=== PATIENT | female | born 1960 | race Caucasian/White ===

== ENCOUNTER 2016-12-29 18:20 | Emergency (ER) | payer MEDICAID ==
--- NOTE | 2016-12-29 18:42 | EDPHY ---
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 She also felt transiently weak and noted shaking in her bilateral upper extremities which resolved after few seconds. She denies: Headache, visual disturbance, facial symptoms, chest pain, back pain, nausea, vomiting, urinary complaints, recent injury, recent trauma, recent illness, cervical manipulation. PRIMARY CARE PROVIDER: [facility] REVIEW OF SYSTEMS: A ten point review of systems was performed and is negative with the exception of the items mentioned in the HPI PAST MEDICAL & SURGICAL HISTORY: Chronic bilateral upper and lower extremity radiculopathy. Ovarian cyst. SOCIAL HISTORY: nonsmoker PHYSICAL EXAM (Prior to examination, patient consented to physical exam, hands were washed and my usual and customary physical exam procedures followed) 1) GENERAL: Well-developed, well-nourished, alert and oriented. Appears anxious . 2) HEAD: Normocephalic, atraumatic 3) HEENT: Pupils equal, round, reactive to light bilaterally. Sclera anicteric. Nasopharynx, oropharynx, clear, no lesions. Ears bilaterally with normal tympanic membranes. 4) NECK: Full range of motion, no meningeal signs. 5) LUNGS: Clear auscultation bilaterally, no wheezes, no rhonchi, no retractions. 6) HEART: Regular rate and rhythm, no murmur, no heave, no gallop. 7) ABDOMEN: No guarding, tender to palpation epigastrium, no pulsatile or palpable mass, negative McBurney's, negative Diaz's, negative Rovsing's, negative peritoneal sign, 8) MUSCULOSKELETAL: Moving all extremities, no focal areas of tenderness, no obvious trauma. No peripheral edema or discoloration. 9) BACK: No CVA tenderness, no midline vertebral tenderness, no fluctuance, no step-off, no obvious trauma, no visual or palpable abnormality. 10) SKIN: No rash, no petechiae. 11) Psychiatric: Patient is oriented X 3, there is no agitation. 12) NEURO: Awake, alert, and oriented to person, place and time. Answers questions appropriately. There were no obvious focal neurologic abnormalities. No cerebellar dysfunction. Normal steady gait. Upper and lower extremities bilaterally with strength 5 / 5, reflexes 2+. While speaking with the patient she developed a transient episode lasting approximately 20 seconds where she was fully awake, talking, conscious but was shaking her hand. At this time she had no slurred speech, no incontinence. DIFFERENTIAL DIAGNOSIS: In no particular order, including but not limited to biliary colic, cholecystitis, peptic ulcer disease, pancreatitis, and gastroenteritis. This is a partial list of diagnoses considered. These considerations are based on history, physical exam, past history and reassessment. - Personal History Current Tetanus/Diphtheria Vaccine: Yes Current Tetanus Diphtheria and Acellular Pertussis (TDAP): Yes - Medical/Surgical History Hx Asthma: No Hx Chronic Respiratory Disease: No Hx Diabetes: No Hx Cardiac Disease: No Hx Renal Disease: No Hx Cirrhosis: No Hx Alcoholism: No Hx HIV/AIDS: No Hx Splenectomy or Spleen Trauma: No Other PMH: Neuropathy - Social History Smoking Status: Never smoked Constitutional: Initial Vital Signs Temperature (C) 36.6 C 12/29/16 18:26 Heart Rate 88 12/29/16 18:26 Respiratory Rate 16 12/29/16 18:26 Blood Pressure 138/80 H 12/29/16 18:26 O2 Sat (%) 97 12/29/16 18:26 O2 Delivery Mode Room Air Allergies/Adverse Reactions: No Known Allergies Allergy (Unverified 12/29/16 18:26) Home Medications: Medication Instructions Recorded Docusate Sodium [Colace] 100 mg PO BID #6 cap 12/29/16 Medical Decision Making - Diagnostics Imaging: Ultrasound Abdomen, Limited History: Right upper quadrant pain. Findings: The liver is homogeneous measuring 12 cm. No evidence for focal liver lesion. No evidence for intrahepatic or extrahepatic biliary ductal dilatation. The common bile duct measures 3 mm. Gallbladder is normal in appearance. Abdominal aorta is normal in diameter with no evidence for dissection or significant atherosclerotic disease. Pancreas is normal in appearance. Right kidney measures 10.8 cm in length and demonstrates no evidence for mass or hydronephrosis. No significant free fluid. Impression: Normal right upper quadrant ultrasound. Results called to Arias Lea PA-C. Dictated By: Rohit Nagy MD images reviewed by myself CT Head (Without Contrast) Indication: Altered mental status. Extremity weakness.. Technique: 5 mm images were obtained of the head without contrast. Multiplanar reformation was performed. Dose reduction techniques were utilized. Findings: No evidence for intracranial mass, hemorrhage, or infarct. The ventricles, sulci, and cisterns are within normal limits for the patient's age. No evidence for an extra-axial fluid collection. No evidence for skull fracture. Paranasal sinuses are clear. Impression: Normal. Results called and discussed with Sharon Lea PA-C, at 12/29/2016 21:05. Dictated By: Rohit Nagy MD CT Abdomen and Pelvis, Without Contrast History: Abdominal pain. Technique: 5-mm helical images were obtained of the abdomen and pelvis from the level of the diaphragms through the symphysis pubis. This was done without contrast. Multiplanar reformation was performed. Radiation dose reduction technique was utilized. Abdomen: The lung bases are clear. No focal liver lesion. The gallbladder is unremarkable. Abdomen: Punctate calcifications are seen in the spleen. Both adrenal glands are normal in size and appearance. No evidence for a mass or hydronephrosis. The pancreas is unremarkable. Moderate stool is seen in the colon. No evidence for a small bowel obstruction. Pelvis: No evidence for diverticulitis. The appendix is normal in size and appearance. No evidence for a bladder calculus. A few phleboliths are seen in the pelvis. No significant free fluid in the pelvis. Mild degenerative change is seen in the lumbar spine. Impression: 1. Moderate constipation. 2. Evidence of prior granulomatous disease, with calcifications in the spleen. 3. Degenerative change lumbar spine. Results called and discussed with Richard Lea PA-C, on December 29, 2016 at 2122 hours. E:CN/amm Dictated By: Rohit Nagy MD images reviewed by myself ED Course/Re-evaluation: 6:40 p.m.: Plan will be laboratory studies, ultrasound. I recommended a dose of benzodiazepine which she declines. Discussed case with Dr. Hollie Morataya in ER 9:30 p.m.: The patient was re-evaluated with serial exams. Initial CT of the abdomen pelvis with IV contrast was ordered however she declined IV contrast. At this time I discussed her negative imaging results showing constipation otherwise essentially negative studies. I prescribed her Colace however she informs me that she believes the pathology of her abdominal pain is something other than constipation. Informed her that I think that acute surgical abdominal pathology such as acute appendicitis, bowel obstruction, acute cholecystitis,aortic dissection or aneurysm is less than likely as there is no radiographic evidence of this. Doubt acute pancreatitis. Regarding her episodes of subjective weakness and all arms shaking. I have witnessed this episode and I think that is less than likely that this is secondary to seizure or CVA. A CT head was obtained which is negative for acute pathology. I have recommended she follow up with Neurology. She informs me that she has seen Dr. Florentino Vizcarra in the past for her chronic upper and lower extremity radiculopathy and has had imaging further evaluation including evaluation for MS which was ruled out. He at this time I think she can be discharged with strict return precautions are provided her. She feels comfortable being discharged. - Data Points Laboratory Results: Laboratory Results 12/29/16 18:45 12/29/16 18:45 12/29/16 12/29/16 12/29/16 19:06 18:45 18:45 WBC RBC Hgb Hct MCV MCH MCHC RDW Plt Count MPV Neut % (Auto) Lymph % (Auto) Candler % (Auto) Eos % (Auto) Baso % (Auto) Nucleat RBC Rel Count Absolute Neuts (auto) Absolute Lymphs (auto) Absolute Monos (auto) Absolute Eos (auto) Absolute Basos (auto) Absolute Nucleated RBC Immature Gran % Immature Gran # Sodium 138 mEq/L mEq/L (134-144) Potassium 3.4 mEq/L L mEq/L (3.5-5.2) Chloride 100 mEq/L mEq/L (97-110) Carbon Dioxide 26 mEq/l mEq/l (22-31) Anion Gap 12 mEq/L mEq/L (8-16) BUN 14 mg/dL mg/dL (7-23) Creatinine 0.8 mg/dL mg/dL (0.6-1.0) Estimated GFR > 60 Glucose 86 mg/dL mg/dL (70-100) Calcium 9.8 mg/dL mg/dL (8.5-10.4) Total Bilirubin 0.7 mg/dL mg/dL (0.1-1.4) Conjugated Bilirubin 0.2 mg/dL mg/dL (0.0-0.5) Unconjugated Bilirubin 0.5 mg/dL mg/dL (0.0-1.1) AST 24 IU/L IU/L (14-46) ALT 30 IU/L IU/L (9-52) Alkaline Phosphatase 82 IU/L IU/L (38-126) Total Protein 8.9 g/dL H g/dL (6.3-8.2) Albumin 4.8 g/dL g/dL (3.5-5.0) Lipase 169.0 IU/L IU/L (23-300) Beta HCG, Qual NEGATIVE Urine Color PALE YELLOW Urine Appearance CLEAR Urine pH 7.0 (5.0-7.5) Ur Specific Cope 1.008 (1.002-1.030) Urine Protein NEGATIVE (NEGATIVE) Urine Ketones NEGATIVE (NEGATIVE) Urine Blood NEGATIVE (NEGATIVE) Urine Nitrate NEGATIVE (NEGATIVE) Urine Bilirubin NEGATIVE (NEGATIVE) Urine Urobilinogen NEGATIVE EU EU (0.2-1.0) Ur Leukocyte Esterase NEGATIVE (NEGATIVE) Urine RBC 1-3 /hpf /hpf (0-3) Urine WBC 1-3 /hpf /hpf (0-3) Ur Epithelial Cells TRACE /lpf /lpf (NONE-1+) Urine Glucose NEGATIVE (NEGATIVE) 12/29/16 18:45 WBC 8.20 10^3/uL 10^3/uL (3.80-9.50) RBC 4.66 10^6/uL 10^6/uL (4.18-5.33) Hgb 14.6 g/dL g/dL (12.6-16.3) Hct 43.3 % % (38.0-47.0) MCV 92.9 fL fL (81.5-99.8) MCH 31.3 pg pg (27.9-34.1) MCHC 33.7 g/dL g/dL (32.4-36.7) RDW 13.0 % % (11.5-15.2) Plt Count 219 10^3/uL 10^3/uL (150-400) MPV 9.6 fL fL (8.7-11.7) Neut % (Auto) 44.4 % % (39.3-74.2) Lymph % (Auto) 45.0 % % (15.0-45.0) Candler % (Auto) 8.4 % % (4.5-13.0) Eos % (Auto) 1.7 % % (0.6-7.6) Baso % (Auto) 0.4 % % (0.3-1.7) Nucleat RBC Rel Count 0.0 % % (0.0-0.2) Absolute Neuts (auto) 3.64 10^3/uL 10^3/uL (1.70-6.50) Absolute Lymphs (auto) 3.69 10^3/uL H 10^3/uL (1.00-3.00) Absolute Monos (auto) 0.69 10^3/uL 10^3/uL (0.30-0.80) Absolute Eos (auto) 0.14 10^3/uL 10^3/uL (0.03-0.40) Absolute Basos (auto) 0.03 10^3/uL 10^3/uL (0.02-0.10) Absolute Nucleated RBC 0.00 10^3/uL 10^3/uL (0-0.01) Immature Gran % 0.1 % % (0.0-1.1) Immature Gran # 0.01 10^3/uL 10^3/uL (0.00-0.10) Sodium Potassium Chloride Carbon Dioxide Anion Gap BUN Creatinine Estimated GFR Glucose Calcium Total Bilirubin Conjugated Bilirubin Unconjugated Bilirubin AST ALT Alkaline Phosphatase Total Protein Albumin Lipase Beta HCG, Qual Urine Color Urine Appearance Urine pH Ur Specific Cope Urine Protein Urine Ketones Urine Blood Urine Nitrate Urine Bilirubin Urine Urobilinogen Ur Leukocyte Esterase Urine RBC Urine WBC Ur Epithelial Cells Urine Glucose Departure - Departure Disposition: Home, Routine, Self-Care Clinical Impression: Weakness Constipation Qualifiers: Constipation type: unspecified constipation type Qualified Code(s): K59.00 - Constipation, unspecified Condition: Good Instructions: Constipation (ED), High Fiber Diet (ED), Weakness (ED) Additional Instructions: Seek immediate medical attention if you develop new or worsening symptoms, if you develop fevers, chills, inability to tolerate oral intake or any other symptoms that concerns you. Referrals: Celestino Salazar MD [Medical Doctor] - 1-2 days without fail Florentino Vizcarra MD [Medical Doctor] - 2-3 days without fail Prescriptions: Docusate Sodium [Colace] 100 mg PO BID #6 cap
[2016-12-29 19:05] LABS: % IMMATURE GRANULYOCYTES 0.1 % (0.0-1.1); ABSOLUTE IMMATURE GRANULOCYTES 0.01 10^3/uL (0.00-0.10); ADD DIFF? NO; ADD MORPH? NO; ADD SCAN? NO; ATYPICAL LYMPHOCYTE FLAG 10 (0-99); FRAGMENT RBC FLAG 0 (0-99); HEMATOCRIT 43.3 % (38.0-47.0); HEMOGLOBIN 14.6 g/dL (12.6-16.3); LEFT SHIFT FLG 0 (0-99); LIPEMIA HEMOLYSIS FLAG 80 (0-99); MEAN CELL HEMOGLOBIN 31.3 pg (27.9-34.1); MEAN CELL HEMOGLOBIN CONCENTR. 33.7 g/dL (32.4-36.7); MEAN CELL VOLUME 92.9 fL (81.5-99.8); MEAN PLATELET VOLUME 9.6 fL (8.7-11.7); PLATELET CLUMPS FLAG 10 (0-99); PLATELET COUNT 219 10^3/uL (150-400); RED BLOOD CELL COUNT 4.66 10^6/uL (4.18-5.33)
[2016-12-29 19:17] LABS: COLOR PALE YELLOW; LEUKOCYTE ESTERASE,URINE NEGATIVE (NEGATIVE); NITRITE,URINE NEGATIVE (NEGATIVE)
[2016-12-29 19:20] LABS: ALANINE AMINOTRANSFERASE 30 IU/L (9-52); ALBUMIN 4.8 g/dL (3.5-5.0); ALKALINE PHOSPHATASE 82 IU/L (38-126); ANION GAP 12 mEq/L (8-16); ASPARTATE AMINOTRANSFERASE 24 IU/L (14-46); BILIRUBIN,TOTAL 0.7 mg/dL (0.1-1.4); BILIRUBIN-CONJUGATED 0.2 mg/dL (0.0-0.5); BILIRUBIN-UNCONJUGATED 0.5 mg/dL (0.0-1.1); CALCIUM 9.8 mg/dL (8.5-10.4); CARBON DIOXIDE 26 mEq/l (22-31); CHLORIDE 100 mEq/L (97-110); CREATININE 0.8 mg/dL (0.6-1.0); GLOMERULAR FILTRATION RATE > 60; GLUCOSE 86 mg/dL (70-100); POTASSIUM 3.4 mEq/L (3.5-5.2); SODIUM 138 mEq/L (134-144); TOTAL PROTEIN 8.9 g/dL (6.3-8.2)
[2016-12-29] MEDS ORDERED: IOPAMIDOL (ISOVUE-300) 100 ML BTL IV ONE (20:17)
[2016-12-29 21:47] VITALS: BP 123/68; PULSE 67; RESP 18; TEMP 98.2; O2SAT 95
== END 2016-12-29 22:03 | disposition home or self-care (01) ==
DX: K59.00 Constipation, unspecified (principal); R53.1 Weakness
CPT/HCPCS: Q9967